=== PATIENT | male | born 1945 | race Caucasian/White ===

== ENCOUNTER → 2020-02-08 08:10 | Outpatient (BNVA) | payer MEDICARE, SELFPAY | PROVIDERS: PCP Internal Medicine; Referring Provider Internal Medicine; Visit Provider Nurse Practitioner Gerontology | DX: E11.65 Type 2 diabetes mellitus with hyperglycemia (principal); E11.42 Type 2 diabetes mellitus with diabetic polyneuropathy; Z79.84 Long term (current) use of oral hypoglycemic drugs; E78.5 Hyperlipidemia, unspecified | CPT/HCPCS: 80048; 80061; 82947; 99212 ==

== ENCOUNTER 2020-02-08 11:27 | Outpatient (REF) | payer MEDICARE, SELFPAY ==
[2020-02-08 14:39] LABS: Anion Gap 16 (12-20); Blood Urea Nitrogen 57 mg/dL (9-16); Calcium 9.4 mg/dL (8.4-10.2); Carbon Dioxide 27 mmol/L (22-29); Chloride 99 mmol/L (96-108); Estimated Glomerular Filt Rate 39; Glucose Random 229 mg/dL (60-115); Potassium 4.4 mmol/l (3.3-5.1); Sodium 138 mmol/L (135-145)
[2020-02-08 14:40] LABS: Cholesterol 159 mg/dL; HDL Cholesterol 61 mg/dL; LDL Cholesterol Calculated 78 mg/dl; Triglycerides 101 mg/dL
== END 2020-02-08 11:28 | disposition home or self-care (01) ==
LOC: HO.10HDL 11:27
PROVIDERS: Internal Medicine; Visit Provider Nurse Practitioner Gerontology
DX: Z13.89 Encounter for screening for other disorder (principal)
CPT/HCPCS: 80048; 80061